=== PATIENT | male | born 1985 | race Hispanic/Latino ===

== ENCOUNTER 2018-04-01 10:10 | Observation (INO) | payer OTHER ==
[~2018-04-01] VITALS: Ht 185.4 cm; Wt 101.2 kg
[2018-04-01] MEDS ORDERED: SODIUM CHLORIDE 0.9% 1000ML 1,000 ML IV STA (10:32)
[2018-04-01] MEDS ORDERED: ONDANSETRON HCL INJ 2 MG/ML VIAL IV NR (10:45)
[2018-04-01] MEDS ORDERED: FAMOTIDINE 20 MG/2 ML VIAL IV NR (10:45)
--- NOTE | 2018-04-01 11:55 | Diagnostic Imaging Report ---
EXAMINATION: CT of the abdomen and pelvis with contrast. TECHNIQUE: Spiral CT images of the abdomen and pelvis were performed from the lung bases to the lesser trochanters after the intravenous administration of 100 cc of Isovue-370. Coronal and sagittal reformatted images were obtained. COMPARISON: None. CLINICAL HISTORY:Right lower quadrant pain DISCUSSION: ABDOMEN/PELVIS: LOWER THORAX:Unremarkable. HEPATOBILIARY: No focal hepatic lesions. No intra-or extrahepatic biliary ductal dilation. The gallbladder is normal. SPLEEN: No splenomegaly. PANCREAS: No focal masses or ductal dilatation. ADRENALS: No adrenal nodules. KIDNEYS/URETERS: No hydronephrosis, stones, or solid mass lesions. PELVIC ORGANS/BLADDER: The bladder is normal. PERITONEUM/RETROPERITONEUM: No free air or fluid. LYMPH NODES: No intra-abdominal, retroperitoneal, pelvic or inguinal lymphadenopathy. VESSELS: The celiac trunk,superior and inferior mesenteric and bilateral renal arteries are patent The portal, superior mesenteric and splenic veins are patent. GI TRACT: The large bowel shows no evidence of distention or wall thickening. The appendix is distended to a maximum diameter of 9 mm with wall thickening and mild adjacent inflammatory stranding best appreciated on series 2 image 53. The stomach is collapsed with prominence of the rugal folds. No small bowel dilatation to suggest obstruction. BONES AND SOFT TISSUE: Bone island in the left femoral head. No osseous destructive lesions. No soft tissue abnormalities. IMPRESSION: Findings suggestive of early acute appendicitis. No perforation or drainable fluid collection. Findings were discussed by telephone with Dr. Gibbs of the emergency center at 11:50 AM 04/01/2018. Signed by: Dr. Ean Joshi M.D. on 04/01/2018 11:51 AM
[2018-04-01] MEDS ORDERED: LEVOFLOXACIN 500MG/D5W 100ML IV SCH (12:15)
[2018-04-01] MEDS ORDERED: DIPHENHYDRAMINE HCL INJ 50 MG/ML VIAL IV PRN (12:15)
[2018-04-01] MEDS ORDERED: ONDANSETRON HCL INJ 2 MG/ML VIAL IV PRN (12:15)
[2018-04-01] MEDS ORDERED: PROMETHAZINE HCL (IM) 25 MG/ML VIAL IV PRN (12:15)
[2018-04-01] MEDS ORDERED: HYDROMORPHONE 1MG/1ML INJ IV PRN (12:15)
--- OUTSIDE RECORDS SUMMARY | 2018-04-01 12:18 | XMS REPORT ---
Author Author [facility] Address Unknown Phone Unavailable Care Team Providers Care Envelope Machine Operator Name Role Phone Evelin GIBBS Unavailable Unavailable Problems This patient has no known problems. Allergies, Adverse Reactions, Alerts This patient has no known allergies or adverse reactions. Medications This patient has no known medications. Encounters Start Date/Time End Date/Time Encounter Type Admission Type Attending Clinicians Care Facility Care Department Encounter ID 2017-10-12 00:00:00 2017 00:00:00 Outpatient [facility] [id number] Results Test Description Test Time Test Comments Text Results Atomic Results Result Comments CT ABD/PEL WITH CONTRAST-HOPD 2018-04-01 11:41:00 [place] [id number] Patient Name: NADEEN HERNANDEZ MR #: [id number] : 1985 Age/Sex: 32/M Req #: [id number] Adm Physician: Ordered by: XIOMARA GIBBS MD Report #: [id number] Location: [facility] Room/Bed: Procedure: [id number] HOPD/CT ABD/PEL WITH CONTRAST-HOPD Exam Date: 04/01/18 Exam Time: 1121 REPORT STATUS: Signed EXAMINATION: CT of the abdomen and pelvis with c ontrast. TECHNIQUE: Spiral CT images of the abdomen and pelvis were performed from the lung bases to the lesser trochanters after the intravenous administration of 100 cc of Isovue-370. Coronal and sagittal reformatted images were obtained. COMPARISON: None. CLINICAL HISTORY:Right lower quadrant pain DISCUSSION: ABDOMEN/PELVIS: LOWER THORAX:Unremarkable. HEPATOBILIARY: No focal hepatic lesions. No intra-or extrahepatic biliary ductal dilation. The gallbladder is normal. SPLEEN: No splenomegaly. PANCREAS: No focal masses or ductal dilatation. ADRENALS: No adrenal nodules. KIDNEYS/URETERS: No hydronephrosis, stones, or solid mass lesions. PELVIC ORGANS/BLADDER: The bladder is normal. PERITONEUM/RETROPERITONEUM: No free air or fluid. LYMPH NODES: No intra-abdominal, retroperitoneal, pelvic or inguinal lymphadenopathy. VESSELS: The celiac trunk,superior and inferior mesenteric and bilateral renal arteries are patent The portal, superior mesenteric and splenic veins are patent. GI TRACT: The large bowel shows no evidence of distention or wall thickening. The appendix is distended to a maximum diameter of 9 mm with wall thickening and mild adjacent inflammatory stranding best appreciated on series 2 image 53. The stomach is collapsed with prominence of the rugal folds. No small bowel dilatation to suggest obstruction. BONES AND SOFT TISSUE: Bone island in the left femoral head. No osseous destructive lesions. No soft tissue abnormalities. IMPRESSION: Findings suggestive of early acute appendicitis. No perforation or drainable fluid collection. Findings were discussed by telephone with Dr. Gibbs of the emergency center at 11:50 AM 04/01/2018. Signed by: Dr. Kasey Larry M.D. on 04/01/2018 11:51 AM Dictated By: KASEY LARRY MD 1151 Transcribed By: ANITA on 04/01/18 1151 COPY TO: XIOMARA GIBBS MD
--- NOTE | 2018-04-01 13:53 | History and Physical ---
CHIEF COMPLAINT: Right-sided abdominal pain since 1 day. HISTORY OF PRESENT ILLNESS: A 32-year-old pleasant male with no significant past medical history was seen in my office this morning with the above complaint. As per the patient, since yesterday he started having right-sided abdominal pain associated with some nausea. Hence, the patient came to my office. In my office, the patient had right lower mild tenderness. Hence, the patient was sent to ER for further evaluation. In the emergency room, the patient was seen by the emergency doctor after the patient was diagnosed with acute appendicitis. Admitted for further care and treatment. No chest pain. No shortness of breath. No vomiting. No diarrhea. No headaches. No hematemesis. No melena. No hematuria or dysuria. No fever. No cough. No witnessed seizures. PAST MEDICAL HISTORY: None. MEDICATIONS: None. SURGICAL HISTORY: None. SOCIAL HISTORY: No smoking. No alcohol. No illicit drug use. and lives with family. FAMILY HISTORY: Noncontributory. REVIEW OF SYSTEMS: As per HPI. PHYSICAL EXAMINATION GENERAL: Patient is alert, awake and oriented times 3. No apparent distress. Lying in bed. VITALS: Temperature is 97, pulse is 69 per minute, respiratory rate is 16 per minute, blood pressure is 146/80, and saturation is 97%. HEENT: Normocephalic and atraumatic. PERRLA. NECK: Soft and supple. No JVD. No lymphadenopathy. LUNGS: Air entry bilateral. HEART: Sounds are heard. ABDOMEN: Soft and nontender. Bowel sounds positive. Right lower quadrant tenderness plus. CAR FERRY CAPTAIN: Alert, awake and oriented times 3. No focal deficit. EXTREMITIES: No cyanosis, clubbing or calf pain. CT scan of the abdomen and pelvis shows findings of acute appendicitis. No perforation or drainable fluid collection. Labs noted. ASSESSMENT: Acute appendicitis. Admit the patient to med/surg floor. Surgical consultation with Dr. Adilson Allred. IV antibiotics, IV fluids and n.p.o. Further care and treatment per the course of the patient in the hospital. Job#: [id number] [place]
[2018-04-01] MEDS: FAMOTIDINE 20 MG/2 ML VIAL IV SCH (17:15)
--- NOTE | 2018-04-01 18:07 | NUR ---
room assignment given, attempted to call report, was asked to call back in 15 minutes
--- NOTE | 2018-04-01 18:26 | NUR ---
called [facility], s/w Sharon, she couldn't find nurse taking this patient, took down my contact info for nurse to return my call in order to give report
--- NOTE | 2018-04-01 18:47 | NUR ---
called, report given to Diane
--- NOTE | 2018-04-01 18:56 | NUR ---
[facility] s/w SANDRITA Pierson approx 30 minutes
--- NOTE | 2018-04-01 19:40 | NUR ---
Pt arrived to floor via EMS alert and oriented x3. Ambulatory with steady gait. Breathing even, unlabored. Skin warm, dry to touch. Verbalizes mild discomfort to right side abdomen. Denies need for any medication at this time. IV site to right ac. Pt knows to remain NPO at this time. Call light within reach. Will continue to monitor.
[2018-04-01] MEDS: D5.45%NS/KCL 20MEQ 1,000 ML IV SCH (19:55)
[2018-04-01] MEDS: METRONIDAZOLE 500MG/NS 100ML IV SCH (19:55)
[2018-04-01 20:00] VITALS: BP 128/65
[2018-04-02] VITALS (10 sets, daily range): BP systolic 112–124; BP diastolic 57–71
[2018-04-02] MEDS: METRONIDAZOLE 500MG/NS 100ML IV SCH ×2 (01:06→05:52)
[2018-04-02 05:10] LABS: BASOPHILS % 0.3 % (0.0-1.0); EOSINOPHILS # (AUTO) 0.2 (0.0-0.4); HEMATOCRIT 44.7 % (38.2-49.6); HEMOGLOBIN 15.1 g/dL (14.0-18.0); LYMPHOCYTES # (AUTO) 0.9 (1.0-3.2); LYMPHOCYTES % 10.5 % (18.0-39.1); MEAN CORPUSCULAR HEMOGLOBIN 28.7 pg (28-32); MEAN CORPUSCULAR HGB CONC 33.8 g/dL (31-35); MONOCYTES # (AUTO) 0.7 (0.2-0.8); MONOCYTES % 7.8 % (4.4-11.3); NEUTROPHILS # (AUTO) 7.1 (2.1-6.9); NEUTROPHILS % 78.7 % (38.7-80.0); PLATELET COUNT 180 x10e3/uL (140-360); RED BLOOD COUNT 5.26 x10e6/uL (4.3-5.7); RED CELL DISTRIBUTION WIDTH 12.4 % (11.7-14.4)
[2018-04-02 05:27] LABS: ANION GAP 11.4 mmol/L (8-16); BLOOD UREA NITROGEN 11 mg/dL (7-26); BUN/CREATININE RATIO 10 (6-25); CALCIUM 9.2 mg/dL (8.4-10.2); CARBON DIOXIDE 26 mmol/L (22-29); CHLORIDE 102 mmol/L (98-107); CREATININE, SERUM 1.06 mg/dL (0.72-1.25); EST GLOMERULAR FILTRATION RATE > 60 ML/MIN (60-); GLUCOSE 103 mg/dL (74-118); POTASSIUM 4.4 mmol/L (3.5-5.1); SODIUM 135 mmol/L (136-145)
--- NOTE | 2018-04-02 07:15 | NUR ---
walking rounds with the night nurse, patient aware of change, in no distress. Call sharpe within reach.
[2018-04-02] MEDS ORDERED: HYDROMORPHONE 1MG/1ML INJ IV PRN ×2 (08:30→12:15)
[2018-04-02 08:39] LABS: ALANINE AMINOTRANSFERASE 20 IU/L (0-55); ALBUMIN 3.8 g/dL (3.5-5.0); ALBUMIN/GLOBULIN RATIO 1.4 (0.8-2.0); ALKALINE PHOSPHATASE 63 IU/L (40-150)
[2018-04-02] MEDS ORDERED: HYDROMORPHONE 2MG/ML 2 MG/ML ML IV PRN ×2 (08:45→12:30)
--- NOTE | 2018-04-02 09:24 | NUR ---
CASE MANAGEMENT INITIAL ASSESSMENT Lopper to bedside to discuss plan of care with patient/family. CM/SW role and care transitions discussed. Anticipated discharge plan discussed along with duration of care. CM/SW discussed patients right to make decisions in care. CM/SW work hours given. Patient lives: IN OWN HOME WITH AND FAMILY Admit/Transfer: VIA ED FROM HOME POA/Emergency contact: TERRY [phone] Current/Previous Home Health: NONE PCP/Follow-up Care: LILI Current/Previous DME: NONE Other Services: NONE Employment Status: [employer] Areas of Concerns: NONE Referral Needs: NONE Education Needs: NONE IMM/HOWELL given and signed (if applicable): NA Goal for discharge: RETURN HOME INDEPENDENTLY CM/SW left business card at the bedside with contact information. Name and number was also written on the patients whiteboard. Patient verbalized understanding of discussion. CM will follow-up with ongoing discharge and transition of care needs.
[2018-04-02] MEDS: D5.45%NS/KCL 20MEQ 1,000 ML IV SCH (09:26)
[2018-04-02] MEDS: FAMOTIDINE 20 MG/2 ML VIAL IV SCH (09:40)
[2018-04-02] MEDS ORDERED: BUPIVACAINE 0.25%/EPI 30ML SDV INJ ONE (10:25)
--- NOTE | 2018-04-02 10:55 | NUR ---
Patient off unit to OR via stretcher. at side.
[2018-04-02] MEDS ORDERED: MEPERIDINE HCL INJ 50 MG/ML INJ ONE (12:20)
[2018-04-02] MEDS ORDERED: FENTANYL CITRATE/PF 100MCG/2 ML INJ ONE ×2 (12:28→19:28)
[2018-04-02] MEDS ORDERED: MORPHINE SULFATE INJ 10 MG/ML ONE (12:54)
[2018-04-02] MEDS ORDERED: MORPHINE SULFATE INJ 4 MG/ML INJ ONE (12:56)
[2018-04-02] MEDS ORDERED: HYDROMORPHONE 2MG/ML 2 MG/ML ML ONE (13:11)
--- NOTE | 2018-04-02 13:13 | Operative Report ---
DATE OF PROCEDURE: April 02, 2018 PREOPERATIVE DIAGNOSIS: Acute appendicitis. POSTOPERATIVE DIAGNOSIS: Acute appendicitis. OPERATION PERFORMED: Laparoscopic appendectomy. ANESTHESIA: General. COMPLICATIONS: None. ESTIMATED BLOOD LOSS: Minimal. DESCRIPTION OF PROCEDURE: With the patient lying in bed in the supine position under good general endotracheal anesthesia, the abdomen was prepped with a Betadine solution and draped in the usual manner. A Veress needle was introduced into the umbilicus and pneumoperitoneum was established without any difficulty. A 12-mm trocar was placed into the umbilicus and a 10 mm video laparoscope was placed into the intra-abdominal cavity. Under direct vision, a 5-mm trocar was placed in the suprapubic region and another 5-mm trocar was placed in the left lower quadrant. Video laparoscopy at this point revealed a retrocecal appendix that was acutely inflamed, but not perforated. The base of the appendix was then dissected as it joined the cecum and was then divided with an application of the endo-BEATA stapler. The mesentery of the appendix was then mobilized off of the retroperitoneum and divided with another application of the BEATA-75 stapler. The appendix was totally from the retroperitoneum, placed in a pouch and removed through the umbilicus. Video laparoscopy was then again carried out. The surgical area was found to be perfectly dry. All the excess fluid was aspirated. The pneumoperitoneum was evacuated and all the trocars were removed under direct vision. The midline fascia at the umbilicus was closed with a [id number] of 0 Vicryl. All layers were infiltrated on the way out with a solution of 0.25% Marcaine. Subcutaneous tissue was approximated with 3-0 Vicryl and the skin was closed with subcuticular 5-0 Vicryl. Benzoin, Steri-Strips and Band-Aids were applied. The sponge, lap and needle count was correct. The patient tolerated the procedure well and returned to the recovery room in stable condition. Job#: [id number] [place]
--- NOTE | 2018-04-02 13:22 | NUR ---
patient back on the unit from OR, 3 trochar sites, bandages dry and in tact, vitals stable.
[2018-04-02] MEDS: KETOROLAC TROMETHAMINE 30 MG/ML VIAL IV PRN (14:01)
[2018-04-02] MEDS ORDERED: SEVOFLURANE INHAL SOLN 250 ML PEN BTL ONE (15:20)
[2018-04-02] MEDS ORDERED: LIDOCAINE HCL 2% LOCAL INJ 5 ML SDV VIAL INJ ONE (15:20)
[2018-04-02] MEDS ORDERED: DEXAMETHASONE SOD PHOS INJ 4 MG/ML VIAL ONE (15:20)
[2018-04-02] MEDS ORDERED: PROPOFOL IV EMULSION 10 MG/ML 20 ML VIAL ONE (15:20)
[2018-04-02] MEDS ORDERED: ONDANSETRON HCL INJ 2 MG/ML VIAL ONE (15:20)
[2018-04-02] MEDS ORDERED: ROCURONIUM BROMIDE 10 MG/ML 5ML VIAL ONE (15:20)
[2018-04-02] MEDS: DEXTROSE 5%/LACTATED RINGERS 1,000 ML IV SCH (16:39)
[2018-04-02] MEDS: HYDROCODONE/APAP 7.5MG-325MG 1 EA TAB PO PRN ×2 (17:25→23:45)
[2018-04-02] MEDS: CEFOXITIN 1GM/ NS 50ML 50 ML IV SCH ×2 (17:42→23:45)
[2018-04-02] MEDS ORDERED: MIDAZOLAM HCL 2 MG/2 ML VIAL ONE (19:28)
--- NOTE | 2018-04-02 23:45 | NUR ---
PATIENT C/O PAIN TO THE ABDOMEN, MEDICATED WITH NORCO 1TAB ORDERED. CALL LIGHT WITHIN EASY REACH, PATIENT INSTRUCTED TO CALL FOR ASSISTANCE UPON GETTING OUT OF THE BED DUE TO SIDE EFFECT FROM THE MEDICATION.
[2018-04-03 00:37] VITALS: BP 103/54
[2018-04-03] MEDS: DEXTROSE 5%/LACTATED RINGERS 1,000 ML IV SCH (03:50)
--- NOTE | 2018-04-03 03:54 | NUR ---
PATIENT IS ASLEEP, HE'S EASY TO AROUSE. NO RESPIRATORY DISTRESS OBSERVED, HE DENIES ABDOMINAL PAIN AT THIS TIME. CALL LIGHT IN EASY REACH, INSTRUCTED TO CALL FOR ASSISTANCE NEEDED.
[2018-04-03 05:01] LABS: BASOPHILS % 0.4 % (0.0-1.0); EOSINOPHILS % 0.6 % (0.0-6.0); HEMATOCRIT 38.8 % (38.2-49.6); HEMOGLOBIN 13.2 g/dL (14.0-18.0); LYMPHOCYTES # (AUTO) 0.8 (1.0-3.2); MEAN CORPUSCULAR HEMOGLOBIN 28.8 pg (28-32); MEAN CORPUSCULAR VOLUME 84.5 fL (81-99); MONOCYTES # (AUTO) 0.7 (0.2-0.8); MONOCYTES % 12.8 % (4.4-11.3); NEUTROPHILS # (AUTO) 3.8 (2.1-6.9); NEUTROPHILS % 69.9 % (38.7-80.0); PLATELET COUNT 174 x10e3/uL (140-360); RED BLOOD COUNT 4.59 x10e6/uL (4.3-5.7); RED CELL DISTRIBUTION WIDTH 12.1 % (11.7-14.4)
[2018-04-03 05:18] LABS: ANION GAP 12.1 mmol/L (8-16); BLOOD UREA NITROGEN 11 mg/dL (7-26); BUN/CREATININE RATIO 12 (6-25); CALCIUM 8.7 mg/dL (8.4-10.2); CARBON DIOXIDE 24 mmol/L (22-29); CHLORIDE 106 mmol/L (98-107); CREATININE, SERUM 0.94 mg/dL (0.72-1.25); EST GLOMERULAR FILTRATION RATE > 60 ML/MIN (60-); GLUCOSE 117 mg/dL (74-118); POTASSIUM 4.1 mmol/L (3.5-5.1); SODIUM 138 mmol/L (136-145)
[2018-04-03 05:59] VITALS: BP 114/57
[2018-04-03] MEDS: CEFOXITIN 1GM/ NS 50ML 50 ML IV SCH (06:00)
[2018-04-03] MEDS: HYDROCODONE/APAP 7.5MG-325MG 1 EA TAB PO PRN (06:01)
--- NOTE | 2018-04-03 07:10 | NUR ---
rounded with the night nurse, patient aware of change, patient in no distress, call sharpe within reach.
[2018-04-03 07:20] VITALS: BP 118/70
[2018-04-03 08:00] VITALS: BP 118/70
[2018-04-03] MEDS: KETOROLAC TROMETHAMINE 30 MG/ML VIAL IV PRN (08:37)
[2018-04-03] MEDS ORDERED: TYLENOL WITH C1 EACH PO (13:15)
[2018-04-03] MEDS ORDERED: LEVAQUIN500 MG PO (13:16)
--- NOTE | 2018-04-03 13:35 | NUR ---
discharge instructions given to patient, patient verbalized understanding. IV discontinued at this time, catheter in tact, small dressing applied. Patient alert and oriented, escorted from unit on wheelchair to personal auto for to drive home.
== END 2018-04-03 13:57 | disposition home or self-care (01) ==
LOC: FSED 10:10 → ERHOLD 12:01 → IMCU 19:44
PROVIDERS: ADMIT Internal Medicine; ATTEND Internal Medicine
DX: K35.30 Acute appendicitis with localized peritonitis, without perforation or gangrene (principal); K21.9 Gastro-esophageal reflux disease without esophagitis
CPT/HCPCS: 36415 ×2; 44970; 74177; 80048 ×3; 80053; 80076; 81003; 85025 ×3; 88304; 96361 ×2; 96367; 96374; 96375; 99284; G0378 ×3; J1100; J1170 ×2; J1885 ×2; J1956; J2001; J2175; J2250; J2270; J2405 ×2; J2550; J2704; J7030; J7121 ×2